=== PATIENT | female | born 1955 | race Caucasian/White ===

== ENCOUNTER 2020-07-22 15:02 | Inpatient (IN) | payer MEDICARE, OTHER ==
[~2020-07-22] VITALS: Ht 157.5 cm; Wt 94.2 kg
[2020-07-22] MEDS ORDERED: SODIUM CHLORIDE 0.9% 1,000 ML IV ONE (15:30)
[2020-07-22] MEDS ORDERED: DexAMETHasone SOD PHOS 10MG/1ML VIAL INJ IV ONE (15:30)
[2020-07-22 16:40] LABS: Albumin 2.8 g/dL (3.4-5.0); Anion Gap 10 (5-15); Blood Urea Nitrogen 49 mg/dL (7-18); Calcium 8.7 mg/dL (8.5-10.1); Carbon Dioxide 17 mmol/L (21-32); Chloride 106 mmol/L (98-107); Glucose 384 mg/dL (74-106); Potassium 3.8 mmol/L (3.5-5.1); Sodium 133 mmol/L (136-145)
[2020-07-22 16:41] LABS: Basophils # (auto) 0 10 ^3/uL (0-0.2); Eosinophils # (auto) 0 10 ^3/uL (0-0.8); Hematocrit 37.5 % (36.0-46.0); Hemoglobin 12.4 g/dL (12.2-16.2); Lymphocytes # (auto) 0.3 10 ^3/uL (0.4-5.4); Lymphocytes % (auto) 4.3 % (10.0-50.0); Mean Corpuscular Hemoglobin 28.1 pg (28.0-32.0); Mean Corpuscular Volume 85.2 fL (80.0-100.0); Monocytes # (auto) 0.3 10 ^3/uL (0-1.3); Monocytes % (auto) 5.3 % (0.0-12.0); Neutrophils # (auto) 5.4 10 ^3/uL (1.6-8.6); Neutrophils % (auto) 90.4 % (37.0-80.0); Nucleated Red Blood Cells % 0.1 %; Platelet Count (auto) 150 10^3/uL (140-450); Red Cell Distribution Width 15.5 % (11.8-14.3)
[2020-07-22 16:48] LABS: INR 0.97 (0.9-1.15); Partial Thromboplastin Time 31.6 sec (23.0-31.2)
[2020-07-22 16:49] LABS: Alanine Aminotransferase 48 U/L (13-56); Alkaline Phosphatase 91 U/L (45-117); Aspartate Aminotransferase 51 U/L (15-37); BUN/Creatinine Ratio 19.8; CRP High Sensitivity 7.39 mg/dL (< 0.3); GFR African American 25 mL/min; GFR Non-African American 21 mL/min; Lactate Dehydrogenase 539 U/L (84-246)
[2020-07-22] MEDS ORDERED: DOXYCYCLINE 100MG/250ML 250 ML IV ONE (18:15)
[2020-07-22] MEDS ORDERED: NITROGLYCERIN 0.4 MG SL TAB SL PRN ×2 (19:00→23:30)
[2020-07-22] MEDS ORDERED: MORPHINE SULF INJ 2 MG/ML SYRINGE 1ML IV PRN ×3 (19:00→23:30)
[2020-07-22] MEDS ORDERED: DEXTROSE (50%) 50ML SYRG IV PRN (23:30)
[2020-07-22] MEDS ORDERED: ENOXAPARIN SOD 100 MG/1 ML SYRINGE SC ONE (23:30)
[2020-07-22] MEDS ORDERED: DOCUSATE SOD 100 MG CAP PO PRN (23:30)
[2020-07-22] MEDS ORDERED: LORazepam 0.5 MG TAB PO PRN (23:30)
[2020-07-22] MEDS ORDERED: ALBUTEROL SULF HFA 90MCG INH 200DOSE IN PRN (23:30)
[2020-07-22] MEDS ORDERED: REMDESIVIR PER PHARMACY 0 ML IV SCH (23:30)
[2020-07-22] MEDS ORDERED: ALUM & MAG HYDROX-SIMETH LIQ(MAALOX) 30 ML PO PRN (23:30)
[2020-07-22] MEDS ORDERED: SODIUM CHLORIDE 0.9% 1,000 ML IV SCH (23:30)
[2020-07-22] MEDS ORDERED: ONDANSETRON HCL 4 MG/2 ML VIAL IV PRN (23:30)
[2020-07-22] MEDS ORDERED: HYDROcodone-ACET 5/325MG TAB PO PRN (23:30)
[2020-07-22] MEDS ORDERED: ACETAMINOPHEN 500 MG TAB PO PRN (23:30)
[2020-07-23] MEDS ORDERED: LOSA25TA38 PO (02:12)
[2020-07-23] MEDS ORDERED: CYAN50008 PO (02:12)
[2020-07-23] MEDS ORDERED: BUDE1AER4 IN (02:12)
[2020-07-23] MEDS ORDERED: METO25TA93 PO (02:12)
[2020-07-23] MEDS ORDERED: GUAI100S6 PO (02:12)
[2020-07-23] MEDS ORDERED: DEXA2TAB PO (02:12)
[2020-07-23] MEDS ORDERED: NIFE90TA49 PO (02:12)
[2020-07-23] MEDS ORDERED: MONT10TA34 PO (02:12)
[2020-07-23] MEDS ORDERED: ATOR-47 PO (02:12)
[2020-07-23] MEDS ORDERED: MELA3TAB27 PO (02:12)
[2020-07-23] MEDS ORDERED: FUROSEMIDE 20 MG/2 ML VIAL IV ONE (02:15)
[2020-07-23] MEDS: guaiFENesin-DM 100/10mg/5ml SYR PO PRN ×2 (02:49→11:02)
[2020-07-23 03:38] LABS: Basophils # (auto) 0 10 ^3/uL (0-0.2); Red Cell Distribution Width 15.8 % (11.8-14.3)
[2020-07-23 03:42] LABS: Basophils % (auto) 0.4 % (0.0-2.0); Eosinophils # (auto) 0 10 ^3/uL (0-0.8); Eosinophils % (auto) 0.2 % (0.0-7.0); Hematocrit 37.1 % (36.0-46.0); Hemoglobin 12.3 g/dL (12.2-16.2); Lymphocytes # (auto) 0.6 10 ^3/uL (0.4-5.4); Lymphocytes % (auto) 5.2 % (10.0-50.0); Mean Corpuscular Hemoglobin 28.5 pg (28.0-32.0); Mean Corpuscular Hgb Conc. 33.2 g/dL (32.0-36.0); Mean Corpuscular Volume 85.8 fL (80.0-100.0); Monocytes # (auto) 1.2 10 ^3/uL (0-1.3); Neutrophils # (auto) 10.3 10 ^3/uL (1.6-8.6); Neutrophils % (auto) 84.2 % (37.0-80.0); Nucleated Red Blood Cells % 0.1 %; Platelet Count (auto) 123 10^3/uL (140-450); Red Blood Cells 4.32 10^6/uL (4.0-5.20); White Blood Cell 12.3 10^3/uL (4.4-10.8)
[2020-07-23 03:59] LABS: Albumin 2.6 g/dL (3.4-5.0); Calcium 8.7 mg/dL (8.5-10.1); Magnesium 2.4 mg/dL (1.6-2.6); Potassium 4.2 mmol/L (3.5-5.1)
[2020-07-23 04:08] LABS: BUN/Creatinine Ratio 21.8; Bilirubin, Total 0.9 mg/dL (0.2-1.0); CRP High Sensitivity 5.11 mg/dL (< 0.3); Total Protein 7.4 g/dL (6.4-8.2)
[2020-07-23 04:20] LABS: Cholesterol 169 mg/dL (< 200); HDL Cholesterol 54 mg/dL (40-59); LDL Cholesterol 88 mg/dL (< 100); Triglycerides 178 mg/dL (< 150)
[2020-07-23] MEDS: InsuLIN REG 1unit/0.01ml Soln (100units/ml) SC SCH ×4 (05:51→23:58)
[2020-07-23] MEDS: ACCU-CHEK COMFORT CURVE STRIP VI SCH ×4 (05:51→22:00)
[2020-07-23] MEDS ORDERED: FUROSEMIDE 20 MG/2 ML VIAL IV SCH (06:00)
[2020-07-23] MEDS ORDERED: REMDESIVIR PER PHARMACY 0 ML IV SCH (07:00)
[2020-07-23 08:00] VITALS: BP 163/90
[2020-07-23 08:27] LABS: Basophils # (auto) 0 10 ^3/uL (0-0.2); Basophils % (auto) 0.2 % (0.0-2.0); Eosinophils # (auto) 0 10 ^3/uL (0-0.8); Hematocrit 38.4 % (36.0-46.0); Hemoglobin 13.2 g/dL (12.2-16.2); Lymphocytes # (auto) 0.4 10 ^3/uL (0.4-5.4); Lymphocytes % (auto) 3.9 % (10.0-50.0); Mean Corpuscular Hemoglobin 28.8 pg (28.0-32.0); Mean Corpuscular Hgb Conc. 34.3 g/dL (32.0-36.0); Mean Corpuscular Volume 84.1 fL (80.0-100.0); Monocytes # (auto) 1.2 10 ^3/uL (0-1.3); Monocytes % (auto) 10.5 % (0.0-12.0); Neutrophils # (auto) 9.7 10 ^3/uL (1.6-8.6); Neutrophils % (auto) 85.4 % (37.0-80.0); Platelet Count (auto) 176 10^3/uL (140-450); Red Blood Cells 4.57 10^6/uL (4.0-5.20); Red Cell Distribution Width 15.4 % (11.8-14.3); White Blood Cell 11.3 10^3/uL (4.4-10.8)
[2020-07-23 08:39] LABS: INR 1.03 (0.9-1.15)
[2020-07-23 08:47] LABS: Albumin 2.7 g/dL (3.4-5.0); Calcium 8.8 mg/dL (8.5-10.1); Magnesium 2.5 mg/dL (1.6-2.6)
[2020-07-23 08:51] LABS: BUN/Creatinine Ratio 21.2; Phosphorus 3.4 mg/dL (2.5-4.90); Total Protein 7.8 g/dL (6.4-8.2)
[2020-07-23] MEDS ORDERED: ASPirin 81 mg TAB PO SCH (10:00)
[2020-07-23] MEDS ORDERED: NIFEdipine ER 30 MG TAB PO SCH (10:00)
[2020-07-23] MEDS ORDERED: BUDESONIDE (INHALATION) 180 MCG IH IN SCH (10:00)
[2020-07-23] MEDS ORDERED: ENOXAPARIN SOD 100 MG/1 ML SYRINGE SC SCH ×2 (10:00)
[2020-07-23] MEDS ORDERED: POTASSIUM CHL 10 Meq TABLET PO SCH (10:00)
[2020-07-23] MEDS ORDERED: LOSARTAN POTASSIUM 25 MG TAB PO SCH (10:00)
[2020-07-23] MEDS ORDERED: METOPROLOL SUCCINATE XL 50 MG TAB PO SCH ×2 (10:00)
[2020-07-23] MEDS: DOXYCYCLINE 100 MG TAB/CAP PO SCH ×2 (10:00→23:49)
[2020-07-23] MEDS: CHOLECALCIFEROL (VITD3) 2,000 UNIT CAP PO SCH (10:42)
[2020-07-23] MEDS: DexAMETHasone SOD PHOS 10MG/1ML VIAL INJ IV SCH (10:42)
[2020-07-23] MEDS: ASPirin 81 mg TAB PO SCH (10:43)
[2020-07-23] MEDS: ASCORBIC ACID 1,000 MG TAB PO SCH (10:44)
[2020-07-23] MEDS: ZINC SULFATE 220mg CAP or TAB PO SCH (10:45)
[2020-07-23] MEDS: HEPARIN SODIUM (PORCINE) 5000 UNITS/ML 1ML VIAL SC SCH ×2 (10:46→23:59)
[2020-07-23] MEDS: SYMBICORT IN SCH ×2 (10:56→23:49)
[2020-07-23 15:06] LABS: Urine Bacteria FEW /hpf (None Seen); Urine Blood 2+ /uL (Negative); Urine Mucus FEW (None Seen); Urine WBC 2 /hpf (0 - 5)
[2020-07-23 15:17] LABS: Amphetamine Screen, Urine NEGATIVE (NEGATIVE); Barbiturate Scree,Urine NEGATIVE (NEGATIVE); Benzodiazephine Screen, Urine NEGATIVE (NEGATIVE); Cannabinoid Screen, Urine NEGATIVE (NEGATIVE); Cocaine Screen, Urine NEGATIVE (NEGATIVE); Opiate Scree,Urine NEGATIVE (NEGATIVE); Phencyclidine Screen, Urine NEGATIVE (NEGATIVE)
[2020-07-23 16:00] VITALS: BP 105/50
[2020-07-23 21:16] VITALS: BP 114/71
[2020-07-23] MEDS ORDERED: ATORVASTATIN 20 MG TAB PO SCH ×2 (22:00)
[2020-07-23] MEDS: ALBUTEROL SULF 2.5 MG/0.5ML(0.5%) NEB SOLN NEB PRN (23:15)
[2020-07-23] MEDS: BUDESONIDE (INHALATION) 0.5 MG/2 ML NEB NEB SCH (23:15)
[2020-07-23 23:44] VITALS: BP 139/74
[2020-07-23] MEDS: INSULIN LANTUS (GLARGINE) 1 /0.01ml (100units/ml) SC SCH (23:53)
[2020-07-24] VITALS (57 sets, daily range): BP systolic 84–195; BP diastolic 43–78
[2020-07-24] MEDS ORDERED: ALBUTEROL SULF 2.5 MG/0.5ML(0.5%) NEB SOLN NEB ONE (02:45)
[2020-07-24] MEDS ORDERED: SODIUM BICARBONATE 8.4 % INJ 50ML VIAL IV ONE ×2 (06:00→21:15)
[2020-07-24] MEDS: InsuLIN REG 1unit/0.01ml Soln (100units/ml) SC SCH ×4 (07:00→22:33)
[2020-07-24] MEDS: ACCU-CHEK COMFORT CURVE STRIP VI SCH ×4 (07:21→22:34)
[2020-07-24] MEDS: INSULIN LANTUS (GLARGINE) 1 /0.01ml (100units/ml) SC SCH ×2 (07:32→22:34)
[2020-07-24] MEDS ORDERED: ETOMIDATE (2MG/ML) 20ML VIAL IV ONE ×2 (09:00→09:44)
[2020-07-24] MEDS ORDERED: ROCURONIUM 10MG/ML 10ML VIAL IV ONE ×2 (09:00→09:44)
[2020-07-24] MEDS ORDERED: SUCCINYLCHOLINE CHLORIDE 20 MG/ML 10ML VIAL IV ONE (09:44)
[2020-07-24] MEDS: MIDAZOLAM DRIP 50 mg/50mL 50 ML IV SCH ×3 (09:45→21:14)
[2020-07-24] MEDS: fentaNYL Drip 2500mCg/250mlNS 250 ML IV SCH (09:45)
[2020-07-24] MEDS: BUDESONIDE (INHALATION) 0.5 MG/2 ML NEB NEB SCH ×2 (10:00→18:33)
[2020-07-24] MEDS: SYMBICORT IN SCH ×2 (10:00→21:34)
[2020-07-24] MEDS: ZINC SULFATE 220mg CAP or TAB PO SCH (12:13)
[2020-07-24] MEDS: ASCORBIC ACID 1,000 MG TAB PO SCH (12:13)
[2020-07-24] MEDS: DexAMETHasone SOD PHOS 10MG/1ML VIAL INJ IV SCH (12:13)
[2020-07-24] MEDS: HEPARIN SODIUM (PORCINE) 5000 UNITS/ML 1ML VIAL SC SCH (12:13)
[2020-07-24] MEDS: CHOLECALCIFEROL (VITD3) 2,000 UNIT CAP PO SCH (12:13)
[2020-07-24] MEDS: ASPirin 81 mg TAB PO SCH (12:13)
[2020-07-24] MEDS ORDERED: BUMETANIDE 2.5mg/10ml (0.25 mg/ml) INJ IV ONE (12:30)
[2020-07-24] MEDS: IVERMECTIN 3 MG TAB PO SCH (16:19)
[2020-07-24 17:10] LABS: Albumin 2.2 g/dL (3.4-5.0); Calcium 8.3 mg/dL (8.5-10.1); Potassium 4.3 mmol/L (3.5-5.1)
[2020-07-24 17:59] LABS: Bilirubin, Total 1.4 mg/dL (0.2-1.0); Total Protein 6.5 g/dL (6.4-8.2)
[2020-07-24] MEDS: NOREPINEPHRINE 8 MG/250ML KIT 250 ML IV SCH (18:20)
[2020-07-24] MEDS: ROCURONIUM 10MG/ML 10ML VIAL IV SCH (18:20)
[2020-07-24] MEDS: ALBUTEROL SULF 2.5 MG/0.5ML(0.5%) NEB SOLN NEB PRN (18:33)
[2020-07-24] MEDS ORDERED: REMDESIVIR PER PHARMACY 0 ML IV SCH (18:45)
[2020-07-24] MEDS ORDERED: REMDESIVIR 200 MG in NS 210ml LOADING DOSE ADULT IV ONE (20:00)
[2020-07-24] MEDS: SODIUM CHLORIDE 0.9% 1,000 ML IV SCH (22:30)
[2020-07-24] MEDS: SODIUM CHLOR 0.9% PF (SALINE LOCK) 10ML VIAL/SYR IV SCH (22:31)
[2020-07-24] MEDS: ENOXAPARIN SOD 40 MG/0.4 ML SYRINGE SC SCH (22:35)
[2020-07-25] VITALS (103 sets, daily range): BP systolic 98–136; BP diastolic 47–59
[2020-07-25] MEDS: ROCURONIUM 10MG/ML 10ML VIAL IV SCH ×6 (00:06→15:42)
[2020-07-25] MEDS: MIDAZOLAM DRIP 50 mg/50mL 50 ML IV SCH ×2 (01:57→05:41)
[2020-07-25] MEDS: fentaNYL Drip 2500mCg/250mlNS 250 ML IV SCH ×2 (01:59→19:48)
[2020-07-25 04:01] LABS: Basophils # (auto) 0 10 ^3/uL (0-0.2); Basophils % (auto) 0.4 % (0.0-2.0); Eosinophils # (auto) 0 10 ^3/uL (0-0.8); Hematocrit 28.9 % (36.0-46.0); Hemoglobin 9.7 g/dL (12.2-16.2); Lymphocytes # (auto) 0.3 10 ^3/uL (0.4-5.4); Lymphocytes % (auto) 2.6 % (10.0-50.0); Mean Corpuscular Hemoglobin 28.3 pg (28.0-32.0); Mean Corpuscular Hgb Conc. 33.7 g/dL (32.0-36.0); Monocytes # (auto) 0.7 10 ^3/uL (0-1.3); Neutrophils # (auto) 9.5 10 ^3/uL (1.6-8.6); Nucleated Red Blood Cells % 0.1 %; Platelet Count (auto) 130 10^3/uL (140-450); Red Blood Cells 3.43 10^6/uL (4.0-5.20); Red Cell Distribution Width 16.2 % (11.8-14.3); White Blood Cell 10.6 10^3/uL (4.4-10.8)
[2020-07-25 04:20] LABS: Potassium 3.9 mmol/L (3.5-5.1)
[2020-07-25 04:26] LABS: Albumin 2.2 g/dL (3.4-5.0); Bilirubin, Total 2.3 mg/dL (0.2-1.0); Total Protein 6.3 g/dL (6.4-8.2)
[2020-07-25] MEDS: SODIUM CHLORIDE 0.9% 1,000 ML IV SCH (04:30)
[2020-07-25] MEDS: ACCU-CHEK COMFORT CURVE STRIP VI SCH ×4 (06:26→21:45)
[2020-07-25] MEDS: INSULIN LANTUS (GLARGINE) 1 /0.01ml (100units/ml) SC SCH ×2 (06:26→22:21)
[2020-07-25] MEDS: InsuLIN REG 1unit/0.01ml Soln (100units/ml) SC SCH ×4 (06:29→22:20)
[2020-07-25] MEDS ORDERED: REMDESIVIR PER PHARMACY 0 ML IV SCH (07:00)
[2020-07-25] MEDS: SYMBICORT IN SCH ×2 (08:56→20:58)
[2020-07-25] MEDS: DexAMETHasone SOD PHOS 10MG/1ML VIAL INJ IV SCH (08:58)
[2020-07-25] MEDS: ZINC SULFATE 220mg CAP or TAB PO SCH (08:59)
[2020-07-25] MEDS: CHOLECALCIFEROL (VITD3) 2,000 UNIT CAP PO SCH (08:59)
[2020-07-25] MEDS: ASCORBIC ACID 1,000 MG TAB PO SCH (08:59)
[2020-07-25] MEDS: SODIUM CHLOR 0.9% PF (SALINE LOCK) 10ML VIAL/SYR IV SCH ×2 (08:59→21:43)
[2020-07-25] MEDS: ENOXAPARIN SOD 40 MG/0.4 ML SYRINGE SC SCH ×2 (09:00→21:44)
[2020-07-25] MEDS ORDERED: SOD CHL 0.45% 1,000 ML IV SCH (10:00)
[2020-07-25] MEDS: IVERMECTIN 3 MG TAB PO SCH (11:20)
[2020-07-25] MEDS: NOREPINEPHRINE 8 MG/250ML KIT 250 ML IV SCH (11:21)
[2020-07-25] MEDS ORDERED: CEFTRIAXONE SODIUM 2 GM in D5W 5% 50 ML IV ONE (12:00)
[2020-07-25] MEDS ORDERED: SODIUM BICARBONATE 50ML VIAL 50 ML in D5W 5% 1,000 ML IV ONE (12:00)
[2020-07-25] MEDS ORDERED: REMDESIVIR 100mg 50 MG in SODIUM CHL 0.9% 240 ML IV ONE (12:30)
[2020-07-25] MEDS: DOXYCYCLINE 100MG/250ML 250 ML IV SCH ×2 (12:40→22:21)
[2020-07-25] MEDS ORDERED: Glucerna 1.2 Cal 1Liter BOTTLE GT SCH (14:30)
[2020-07-25] MEDS ORDERED: REMDESIVIR 100mg 100 MG in SODIUM CHL 0.9% 230 ML IV SCH (15:00)
[2020-07-25] MEDS: ERGOCALCIFEROL 50,000 UNIT(1.25MG) CAP PO SCH (18:52)
[2020-07-25] MEDS: BUDESONIDE (INHALATION) 0.5 MG/2 ML NEB NEB SCH (21:35)
[2020-07-25] MEDS: ALBUTEROL SULF 2.5 MG/0.5ML(0.5%) NEB SOLN NEB PRN (21:36)
[2020-07-26] VITALS (97 sets, daily range): BP systolic 13–176; BP diastolic 1–108
[2020-07-26] MEDS: MIDAZOLAM DRIP 50 mg/50mL 50 ML IV SCH (02:48)
[2020-07-26 05:23] LABS: Basophils # (auto) 0 10 ^3/uL (0-0.2); Basophils % (auto) 0.1 % (0.0-2.0); Eosinophils # (auto) 0 10 ^3/uL (0-0.8); Hemoglobin 9.3 g/dL (12.2-16.2); Lymphocytes # (auto) 0.2 10 ^3/uL (0.4-5.4); Lymphocytes % (auto) 2.3 % (10.0-50.0); Mean Corpuscular Hemoglobin 28.3 pg (28.0-32.0); Mean Corpuscular Hgb Conc. 33.2 g/dL (32.0-36.0); Mean Corpuscular Volume 85.2 fL (80.0-100.0); Monocytes # (auto) 0.7 10 ^3/uL (0-1.3); Monocytes % (auto) 8.6 % (0.0-12.0); Neutrophils # (auto) 6.9 10 ^3/uL (1.6-8.6); Nucleated Red Blood Cells % 0.1 %; Platelet Count (auto) 116 10^3/uL (140-450); Red Blood Cells 3.29 10^6/uL (4.0-5.20); White Blood Cell 7.8 10^3/uL (4.4-10.8)
[2020-07-26] MEDS: ACCU-CHEK COMFORT CURVE STRIP VI SCH ×4 (05:28→22:00)
[2020-07-26] MEDS: InsuLIN REG 1unit/0.01ml Soln (100units/ml) SC SCH ×4 (05:29→22:00)
[2020-07-26] MEDS: INSULIN LANTUS (GLARGINE) 1 /0.01ml (100units/ml) SC SCH ×2 (05:29→22:00)
[2020-07-26 05:43] LABS: Magnesium 2.9 mg/dL (1.6-2.6)
[2020-07-26 05:54] LABS: Albumin 1.8 g/dL (3.4-5.0); BUN/Creatinine Ratio 23.3; Bilirubin, Total 1.8 mg/dL (0.2-1.0); CRP High Sensitivity 12.4 mg/dL (< 0.3); Calcium 7.7 mg/dL (8.5-10.1); Phosphorus 3.3 mg/dL (2.5-4.90); Total Protein 5.8 g/dL (6.4-8.2)
[2020-07-26] MEDS: fentaNYL Drip 2500mCg/250mlNS 250 ML IV SCH ×2 (07:32→19:54)
[2020-07-26] MEDS: cefTRIAXone 1GM/50ML D5W 50 ML IV SCH (09:00)
[2020-07-26] MEDS: ZINC SULFATE 220mg CAP or TAB PO SCH (09:44)
[2020-07-26] MEDS: IVERMECTIN 3 MG TAB PO SCH (09:45)
[2020-07-26] MEDS: ASCORBIC ACID 1,000 MG TAB PO SCH (09:46)
[2020-07-26] MEDS: CHOLECALCIFEROL (VITD3) 2,000 UNIT CAP PO SCH (09:48)
[2020-07-26] MEDS: ENOXAPARIN SOD 40 MG/0.4 ML SYRINGE SC SCH (09:49)
[2020-07-26] MEDS ORDERED: PANTOPRAZOLE 40 MG TAB PO SCH ×2 (10:00)
[2020-07-26] MEDS: BUDESONIDE (INHALATION) 0.5 MG/2 ML NEB NEB SCH ×2 (10:00→22:00)
[2020-07-26] MEDS: SYMBICORT IN SCH ×2 (10:00→22:00)
[2020-07-26] MEDS: diphenhdrAMINE HCL 50 MG/1 ML VL IV SCH ×2 (11:13→22:00)
[2020-07-26] MEDS: methylPREDNISolone SOD SUCC 40 MG/ML VL IV SCH ×2 (11:13→22:00)
[2020-07-26] MEDS: ACETAMINOPHEN 650 mg PER 20.3 mL UD PO SCH ×2 (11:15→22:00)
[2020-07-26] MEDS: SODIUM CHLOR 0.9% PF (SALINE LOCK) 10ML VIAL/SYR IV SCH ×2 (11:40→22:00)
[2020-07-26] MEDS: TOCILIZUMAB 400 MG in SODIUM CHL 0.9% 80 ML IV SCH ×2 (11:45→22:36)
[2020-07-26] MEDS: NOREPINEPHRINE 8 MG/250ML KIT 250 ML IV SCH (12:30)
[2020-07-26] MEDS: DOXYCYCLINE 100MG/250ML 250 ML IV SCH ×2 (12:55→23:36)
[2020-07-26] MEDS: ROCURONIUM 10MG/ML 10ML VIAL IV PRN ×2 (18:50→23:37)
[2020-07-27] VITALS (94 sets, daily range): BP systolic 139–172; BP diastolic 61–76
[2020-07-27 03:32] LABS: Basophils # (auto) 0 10 ^3/uL (0-0.2); Basophils % (auto) 0.2 % (0.0-2.0); Eosinophils # (auto) 0 10 ^3/uL (0-0.8); Hematocrit 30.5 % (36.0-46.0); Hemoglobin 9.8 g/dL (12.2-16.2); Lymphocytes # (auto) 0.2 10 ^3/uL (0.4-5.4); Mean Corpuscular Hemoglobin 27.7 pg (28.0-32.0); Mean Corpuscular Hgb Conc. 32.1 g/dL (32.0-36.0); Mean Corpuscular Volume 86.1 fL (80.0-100.0); Monocytes # (auto) 0.5 10 ^3/uL (0-1.3); Monocytes % (auto) 6.5 % (0.0-12.0); Neutrophils # (auto) 6.6 10 ^3/uL (1.6-8.6); Neutrophils % (auto) 90.3 % (37.0-80.0); Nucleated Red Blood Cells % 0.1 %; Platelet Count (auto) 132 10^3/uL (140-450); Red Blood Cells 3.54 10^6/uL (4.0-5.20); Red Cell Distribution Width 16.3 % (11.8-14.3); White Blood Cell 7.3 10^3/uL (4.4-10.8)
[2020-07-27 03:51] LABS: BUN/Creatinine Ratio 25.8; Calcium 7.6 mg/dL (8.5-10.1); Potassium 4.5 mmol/L (3.5-5.1)
[2020-07-27] MEDS: InsuLIN REG 1unit/0.01ml Soln (100units/ml) SC SCH ×4 (06:22→22:00)
[2020-07-27] MEDS: INSULIN LANTUS (GLARGINE) 1 /0.01ml (100units/ml) SC SCH ×2 (06:23→22:00)
[2020-07-27] MEDS: ACCU-CHEK COMFORT CURVE STRIP VI SCH ×4 (06:24→22:00)
[2020-07-27] MEDS: fentaNYL Drip 2500mCg/250mlNS 250 ML IV SCH ×2 (07:33→18:53)
[2020-07-27] MEDS: cefTRIAXone 1GM/50ML D5W 50 ML IV SCH (08:06)
[2020-07-27] MEDS: ROCURONIUM 10MG/ML 10ML VIAL IV PRN ×2 (09:00→15:10)
[2020-07-27] MEDS: BUDESONIDE (INHALATION) 0.5 MG/2 ML NEB NEB SCH ×2 (10:00→22:00)
[2020-07-27] MEDS: SYMBICORT IN SCH ×2 (10:00→22:00)
[2020-07-27] MEDS: OMEPRAZOLE 20MG/10ML ORAL SUSP GT SCH (10:21)
[2020-07-27] MEDS: SODIUM CHLOR 0.9% PF (SALINE LOCK) 10ML VIAL/SYR IV SCH ×2 (10:23→21:34)
[2020-07-27] MEDS: IVERMECTIN 3 MG TAB PO SCH (10:24)
[2020-07-27] MEDS: ZINC SULFATE 220mg CAP or TAB PO SCH (10:24)
[2020-07-27] MEDS: ASCORBIC ACID 1,000 MG TAB PO SCH (10:24)
[2020-07-27] MEDS: CHOLECALCIFEROL (VITD3) 2,000 UNIT CAP PO SCH (10:25)
[2020-07-27] MEDS: ENOXAPARIN SOD 40 MG/0.4 ML SYRINGE SC SCH (10:25)
[2020-07-27] MEDS: DOXYCYCLINE 100MG/250ML 250 ML IV SCH (11:06)
[2020-07-27] MEDS: MIDAZOLAM DRIP 50 mg/50mL 50 ML IV SCH ×3 (12:07→21:35)
[2020-07-27] MEDS: NOREPINEPHRINE 8 MG/250ML KIT 250 ML IV SCH (12:30)
[2020-07-27] MEDS: REMDESIVIR 100mg 50 MG in SODIUM CHL 0.9% 240 ML IV SCH (15:41)
[2020-07-27] MEDS: PROPOFOL 100 ML IV SCH (21:00)
[2020-07-27] MEDS ORDERED: ROCURONIUM BROMIDE 1,000 MG in D5W 5% 150 ML IV SCH (21:00)
[2020-07-28] VITALS (96 sets, daily range): BP systolic 90–154; BP diastolic 48–70
[2020-07-28] MEDS: DOXYCYCLINE 100MG/250ML 250 ML IV SCH ×3 (00:13→23:08)
[2020-07-28 03:49] LABS: Basophils # (auto) 0 10 ^3/uL (0-0.2); Eosinophils # (auto) 0 10 ^3/uL (0-0.8); Hematocrit 31.8 % (36.0-46.0); Hemoglobin 10.4 g/dL (12.2-16.2); Lymphocytes # (auto) 0.3 10 ^3/uL (0.4-5.4); Lymphocytes % (auto) 3.6 % (10.0-50.0); Mean Corpuscular Hemoglobin 27.9 pg (28.0-32.0); Mean Corpuscular Hgb Conc. 32.6 g/dL (32.0-36.0); Mean Corpuscular Volume 85.6 fL (80.0-100.0); Monocytes # (auto) 1.1 10 ^3/uL (0-1.3); Monocytes % (auto) 12.6 % (0.0-12.0); Neutrophils # (auto) 7.5 10 ^3/uL (1.6-8.6); Neutrophils % (auto) 83.8 % (37.0-80.0); Nucleated Red Blood Cells % 0.1 %; Platelet Count (auto) 145 10^3/uL (140-450); Red Blood Cells 3.72 10^6/uL (4.0-5.20)
[2020-07-28 04:05] LABS: INR 1.12 (0.9-1.15); Partial Thromboplastin Time 31.9 sec (23.0-31.2)
[2020-07-28 04:08] LABS: BUN/Creatinine Ratio 28.9; Calcium 7.9 mg/dL (8.5-10.1); Magnesium 2.7 mg/dL (1.6-2.6); Potassium 4.8 mmol/L (3.5-5.1); Total Protein 5.9 g/dL (6.4-8.2)
[2020-07-28 04:10] LABS: Bilirubin, Total 2.5 mg/dL (0.2-1.0); Phosphorus 4.8 mg/dL (2.5-4.90)
[2020-07-28] MEDS: MIDAZOLAM DRIP 50 mg/50mL 50 ML IV SCH ×2 (05:41→20:00)
[2020-07-28] MEDS: InsuLIN REG 1unit/0.01ml Soln (100units/ml) SC SCH ×4 (05:42→22:18)
[2020-07-28] MEDS: fentaNYL Drip 2500mCg/250mlNS 250 ML IV SCH (05:42)
[2020-07-28] MEDS: INSULIN LANTUS (GLARGINE) 1 /0.01ml (100units/ml) SC SCH ×2 (07:01→22:19)
[2020-07-28] MEDS: ACCU-CHEK COMFORT CURVE STRIP VI SCH ×4 (07:01→22:19)
[2020-07-28] MEDS: cefTRIAXone 1GM/50ML D5W 50 ML IV SCH (09:13)
[2020-07-28] MEDS: SYMBICORT IN SCH ×2 (10:00→22:00)
[2020-07-28] MEDS: IVERMECTIN 3 MG TAB PO SCH (10:27)
[2020-07-28] MEDS: SODIUM CHLOR 0.9% PF (SALINE LOCK) 10ML VIAL/SYR IV SCH ×2 (10:27→22:17)
[2020-07-28] MEDS: ZINC SULFATE 220mg CAP or TAB PO SCH (10:27)
[2020-07-28] MEDS: OMEPRAZOLE 20MG/10ML ORAL SUSP GT SCH (10:27)
[2020-07-28] MEDS: ASCORBIC ACID 1,000 MG TAB PO SCH (10:27)
[2020-07-28] MEDS: CHOLECALCIFEROL (VITD3) 2,000 UNIT CAP PO SCH (10:28)
[2020-07-28] MEDS: ENOXAPARIN SOD 40 MG/0.4 ML SYRINGE SC SCH (10:28)
[2020-07-28] MEDS: NOREPINEPHRINE 8 MG/250ML KIT 250 ML IV SCH (11:54)
[2020-07-28] MEDS: REMDESIVIR 100mg 50 MG in SODIUM CHL 0.9% 240 ML IV SCH (15:00)
[2020-07-28] MEDS: BUDESONIDE (INHALATION) 0.5 MG/2 ML NEB NEB SCH ×2 (16:50→19:59)
[2020-07-28] MEDS: ALBUTEROL SULF 2.5 MG/0.5ML(0.5%) NEB SOLN NEB PRN (19:59)
[2020-07-28] MEDS: PROPOFOL 100 ML IV SCH (20:01)
[2020-07-29] VITALS (92 sets, daily range): BP systolic 77–234; BP diastolic 32–300
[2020-07-29] MEDS: MIDAZOLAM DRIP 50 mg/50mL 50 ML IV SCH ×2 (00:26→04:18)
[2020-07-29] MEDS: fentaNYL Drip 2500mCg/250mlNS 250 ML IV SCH (04:17)
[2020-07-29] MEDS: NOREPINEPHRINE 8 MG/250ML KIT 250 ML IV SCH (04:22)
[2020-07-29] MEDS: ACCU-CHEK COMFORT CURVE STRIP VI SCH ×4 (06:45→22:18)
[2020-07-29] MEDS: INSULIN LANTUS (GLARGINE) 1 /0.01ml (100units/ml) SC SCH ×2 (06:45→22:47)
[2020-07-29] MEDS: InsuLIN REG 1unit/0.01ml Soln (100units/ml) SC SCH ×4 (06:46→22:44)
[2020-07-29] MEDS: cefTRIAXone 1GM/50ML D5W 50 ML IV SCH (09:00)
[2020-07-29] MEDS: ZINC SULFATE 220mg CAP or TAB PO SCH (10:00)
[2020-07-29] MEDS: ENOXAPARIN SOD 40 MG/0.4 ML SYRINGE SC SCH (10:00)
[2020-07-29] MEDS: BUDESONIDE (INHALATION) 0.5 MG/2 ML NEB NEB SCH ×2 (10:00→18:20)
[2020-07-29] MEDS: OMEPRAZOLE 20MG/10ML ORAL SUSP GT SCH (10:00)
[2020-07-29] MEDS: ASCORBIC ACID 1,000 MG TAB PO SCH (10:00)
[2020-07-29] MEDS: SODIUM CHLOR 0.9% PF (SALINE LOCK) 10ML VIAL/SYR IV SCH ×2 (10:00→22:19)
[2020-07-29] MEDS: CHOLECALCIFEROL (VITD3) 2,000 UNIT CAP PO SCH (10:00)
[2020-07-29] MEDS: IVERMECTIN 3 MG TAB PO SCH (10:00)
[2020-07-29] MEDS: SYMBICORT IN SCH ×2 (10:00→19:43)
[2020-07-29 10:19] LABS: Hematocrit 33.4 % (36.0-46.0); Hemoglobin 10.8 g/dL (12.2-16.2); Mean Corpuscular Hemoglobin 28.1 pg (28.0-32.0); Mean Corpuscular Hgb Conc. 32.3 g/dL (32.0-36.0); Platelet Count (auto) 170 10^3/uL (140-450); Red Blood Cells 3.84 10^6/uL (4.0-5.20); Red Cell Distribution Width 16.6 % (11.8-14.3); White Blood Cell 9.6 10^3/uL (4.4-10.8)
[2020-07-29 10:28] LABS: Basophils % (manual) 0 (0.0-2.0); Metamyelocytes % 0; Promyelocytes % 0; Reactive Lymphocytes 0
[2020-07-29 10:43] LABS: Calcium 7.8 mg/dL (8.5-10.1)
[2020-07-29 10:46] LABS: Band Neutrophils % (manual) 8; Blast Cells 1; Eosinophils % (manual) 3 (0-7); Lymphocytes % (manual) 22 (10.0-50.0); Monocytes % (manual) 9 (0-12); Myelocytes % 7
[2020-07-29 10:47] LABS: BUN/Creatinine Ratio 27.1; Bilirubin, Total 2.6 mg/dL (0.2-1.0); Total Protein 5.8 g/dL (6.4-8.2)
[2020-07-29] MEDS ORDERED: BUMETANIDE 2.5mg/10ml (0.25 mg/ml) INJ IV ONE (12:00)
[2020-07-29] MEDS: DOXYCYCLINE 100MG/250ML 250 ML IV SCH (12:00)
[2020-07-29] MEDS: ALBUMIN 25% 100 ML IV SCH ×2 (12:00→19:42)
[2020-07-29] MEDS ORDERED: SODIUM BICARBONATE 8.4 % INJ 50ML VIAL IV ONE (13:30)
[2020-07-29] MEDS: REMDESIVIR 100mg 50 MG in SODIUM CHL 0.9% 240 ML IV SCH (15:36)
[2020-07-29] MEDS ORDERED: HEPARIN SODIUM (PORCINE) 5000 UNITS/ML 1ML VIAL IV ONE (15:45)
[2020-07-29] MEDS: PROPOFOL 100 ML IV SCH (19:42)
[2020-07-29] MEDS: ALBUTEROL SULF 2.5 MG/0.5ML(0.5%) NEB SOLN NEB PRN (20:34)
[2020-07-29] MEDS: LINEZOLID 600MG/300ML 300 ML IV SCH (22:18)
[2020-07-29 22:29] LABS: Hepatitis B Surface Antigen Negative (Negative); Hepatitis C Antibody Negative (Negative)
[2020-07-29] MEDS: MEROPENEM 500MG IVPB 50 ML IV SCH (23:04)
[2020-07-30] VITALS (98 sets, daily range): BP systolic 82–184; BP diastolic 33–72
[2020-07-30] MEDS: DOXYCYCLINE 100MG/250ML 250 ML IV SCH ×3 (00:01→23:56)
[2020-07-30] MEDS: fentaNYL Drip 2500mCg/250mlNS 250 ML IV SCH ×3 (02:16→22:05)
[2020-07-30] MEDS: MIDAZOLAM DRIP 50 mg/50mL 50 ML IV SCH ×5 (02:17→23:01)
[2020-07-30] MEDS: ALBUMIN 25% 100 ML IV SCH ×3 (04:10→18:18)
[2020-07-30] MEDS: ACCU-CHEK COMFORT CURVE STRIP VI SCH ×4 (06:18→22:05)
[2020-07-30] MEDS: INSULIN LANTUS (GLARGINE) 1 /0.01ml (100units/ml) SC SCH ×2 (06:19→22:04)
[2020-07-30] MEDS: InsuLIN REG 1unit/0.01ml Soln (100units/ml) SC SCH ×3 (06:20→23:57)
[2020-07-30] MEDS: BUDESONIDE (INHALATION) 0.5 MG/2 ML NEB NEB SCH ×2 (06:45→21:44)
[2020-07-30] MEDS ORDERED: SODIUM CHL 0.9% 1000 ML BAG XX ONE (07:00)
[2020-07-30 07:25] LABS: Calcium 6.4 mg/dL (8.5-10.1)
[2020-07-30 07:29] LABS: BUN/Creatinine Ratio 30.4
[2020-07-30] MEDS: ALBUTEROL SULF 2.5 MG/0.5ML(0.5%) NEB SOLN NEB PRN ×2 (08:13→21:44)
[2020-07-30] MEDS ORDERED: SODIUM BICARBONATE 8.4 % INJ 50ML VIAL IV ONE (09:00)
[2020-07-30] MEDS: SODIUM CHLOR 0.9% PF (SALINE LOCK) 10ML VIAL/SYR IV SCH ×2 (09:19→21:46)
[2020-07-30] MEDS: OMEPRAZOLE 20MG/10ML ORAL SUSP GT SCH (09:19)
[2020-07-30] MEDS: ZINC SULFATE 220mg CAP or TAB PO SCH (09:20)
[2020-07-30] MEDS: ASCORBIC ACID 1,000 MG TAB PO SCH (09:20)
[2020-07-30] MEDS: ENOXAPARIN SOD 40 MG/0.4 ML SYRINGE SC SCH (09:20)
[2020-07-30] MEDS: CHOLECALCIFEROL (VITD3) 2,000 UNIT CAP PO SCH (09:20)
[2020-07-30] MEDS: SYMBICORT IN SCH (09:20)
[2020-07-30] MEDS: LINEZOLID 600MG/300ML 300 ML IV SCH ×2 (09:36→21:46)
[2020-07-30] MEDS ORDERED: BUMETANIDE 2.5mg/10ml (0.25 mg/ml) INJ IV SCH (10:00)
[2020-07-30] MEDS: MEROPENEM 500MG IVPB 50 ML IV SCH ×2 (12:20→21:46)
[2020-07-30] MEDS: NOREPINEPHRINE 8 MG/250ML KIT 250 ML IV SCH (12:30)
[2020-07-30] MEDS ORDERED: TPN PER PHARMACY 0 ML IV SCH (12:30)
[2020-07-30] MEDS ORDERED: hydrALAZINE HCL 20 MG/ML VL IV PRN (14:15)
[2020-07-30 15:14] LABS: Albumin 2.8 g/dL (3.4-5.0); Bilirubin, Direct 1.8 mg/dL (0-0.2); Magnesium 2.6 mg/dL (1.6-2.6)
[2020-07-30 15:20] LABS: Bilirubin, Total 2.4 mg/dL (0.2-1.0); Phosphorus 4.6 mg/dL (2.5-4.90); Pre Albumin 20.1 mg/dL (20.0-40.0)
[2020-07-30] MEDS ORDERED: DEXTROSE (50%) 50ML SYRG IV PRN (16:15)
[2020-07-30] MEDS ORDERED: InsuLIN REG 1unit/0.01ml Soln (100units/ml) SC SCH ×2 (17:00→22:00)
[2020-07-30] MEDS: AMINO ACID INFUSION IN D10W 1,000 ML IV NR (20:09)
[2020-07-30] MEDS: PROPOFOL 100 ML IV SCH (21:00)
[2020-07-31] VITALS (99 sets, daily range): BP systolic 29–173; BP diastolic 13–85
[2020-07-31] MEDS ORDERED: DEXTROSE (50%) 50ML SYRG IV SCH
[2020-07-31] MEDS: ACCU-CHEK COMFORT CURVE STRIP VI SCH ×4 (00:11→17:27)
[2020-07-31] MEDS: PROPOFOL 100 ML IV SCH ×3 (01:00→21:36)
[2020-07-31] MEDS: ALBUMIN 25% 100 ML IV SCH (03:00)
[2020-07-31] MEDS: MIDAZOLAM DRIP 50 mg/50mL 50 ML IV SCH ×2 (03:44→14:18)
[2020-07-31] MEDS: InsuLIN REG 1unit/0.01ml Soln (100units/ml) SC SCH ×3 (06:00→17:27)
[2020-07-31 06:06] LABS: Potassium 4.3 mmol/L (3.5-5.1)
[2020-07-31 06:14] LABS: Albumin 3.4 g/dL (3.4-5.0); BUN/Creatinine Ratio 27.8; Bilirubin, Total 3.2 mg/dL (0.2-1.0); Calcium 7.7 mg/dL (8.5-10.1); Magnesium 2.8 mg/dL (1.6-2.6); Phosphorus 4.6 mg/dL (2.5-4.90); Total Protein 5.8 g/dL (6.4-8.2)
[2020-07-31] MEDS: INSULIN LANTUS (GLARGINE) 1 /0.01ml (100units/ml) SC SCH ×2 (06:46→21:42)
[2020-07-31] MEDS: LINEZOLID 600MG/300ML 300 ML IV SCH ×2 (08:05→21:41)
[2020-07-31] MEDS: NOREPINEPHRINE 8 MG/250ML KIT 250 ML IV SCH ×2 (08:06→15:02)
[2020-07-31] MEDS ORDERED: CALCIUM GLUC 4.65meq/50ml D5AE 50 ML IV ONE (09:30)
[2020-07-31] MEDS: OMEPRAZOLE 20MG/10ML ORAL SUSP GT SCH (09:56)
[2020-07-31] MEDS: ASCORBIC ACID 1,000 MG TAB PO SCH (09:57)
[2020-07-31] MEDS: SODIUM CHLOR 0.9% PF (SALINE LOCK) 10ML VIAL/SYR IV SCH ×2 (09:57→21:41)
[2020-07-31] MEDS: ZINC SULFATE 220mg CAP or TAB PO SCH (09:57)
[2020-07-31] MEDS: CHOLECALCIFEROL (VITD3) 2,000 UNIT CAP PO SCH (09:57)
[2020-07-31] MEDS: MEROPENEM 500MG IVPB 50 ML IV SCH ×2 (09:57→21:41)
[2020-07-31] MEDS: SYMBICORT IN SCH ×2 (10:00→22:00)
[2020-07-31] MEDS: ENOXAPARIN SOD 40 MG/0.4 ML SYRINGE SC SCH (10:00)
[2020-07-31] MEDS: BUDESONIDE (INHALATION) 0.5 MG/2 ML NEB NEB SCH ×2 (10:00→20:55)
[2020-07-31 10:23] LABS: Hematocrit 22.4 % (36.0-46.0); Hemoglobin 7.5 g/dL (12.2-16.2); Mean Corpuscular Hemoglobin 28.4 pg (28.0-32.0); Mean Corpuscular Volume 84.8 fL (80.0-100.0); Red Blood Cells 2.64 10^6/uL (4.0-5.20); White Blood Cell 5.2 10^3/uL (4.4-10.8)
[2020-07-31 10:27] LABS: Mean Corpuscular Hgb Conc. 33.5 g/dL (32.0-36.0); Platelet Count (auto) 89 10^3/uL (140-450); Red Cell Distribution Width 15.8 % (11.8-14.3)
[2020-07-31 10:32] LABS: Basophils % (manual) 0 (0.0-2.0); Blast Cells 0; Promyelocytes % 0; Reactive Lymphocytes 0
[2020-07-31] MEDS ORDERED: ROCURONIUM 10MG/ML 10ML VIAL IV PRN (11:00)
[2020-07-31] MEDS ORDERED: ROCURONIUM 10MG/ML 10ML VIAL IV ONE (11:09)
[2020-07-31] MEDS ORDERED: EPINEPHrine HCL 250 ML IV ONE (12:18)
[2020-07-31] MEDS: EPINEPHrine HCL 250 ML IV SCH (13:00)
[2020-07-31] MEDS: VASOPRESSIN 50 UNITS in D5W 5% 247.5 ML IV SCH (13:00)
[2020-07-31] MEDS: PHENYLEPHRINE IV 250 ML IV SCH ×2 (13:00→20:09)
[2020-07-31] MEDS: DOXYCYCLINE 100MG/250ML 250 ML IV SCH (13:36)
[2020-07-31 13:56] LABS: Band Neutrophils % (manual) 8; Eosinophils % (manual) 1 (0-7); Lymphocytes % (manual) 6 (10.0-50.0); Metamyelocytes % 2; Monocytes % (manual) 4 (0-12)
[2020-07-31 13:57] LABS: Myelocytes % 3
[2020-07-31] MEDS: fentaNYL Drip 2500mCg/250mlNS 250 ML IV SCH (17:05)
[2020-07-31] MEDS: AMINO ACID INFUSION IN D10W 1,000 ML IV NR (19:49)
[2020-07-31] MEDS ORDERED: TPN PER PHARMACY IV NR ×5 (20:00)
[2020-07-31] MEDS: ALBUTEROL SULF 2.5 MG/0.5ML(0.5%) NEB SOLN NEB PRN (20:56)
[2020-07-31] MEDS ORDERED: FAMOTIDINE (10MG/ML) 2ML VL IV ONE (22:00)
[2020-07-31] MEDS ORDERED: FAMOTIDINE INJECTION 40 MG in SODIUM CHL 0.9% 100 ML IV ONE (22:00)
[2020-08-01] VITALS (80 sets, daily range): BP systolic 22–244; BP diastolic 15–91
[2020-08-01] MEDS: DOXYCYCLINE 100MG/250ML 250 ML IV SCH ×2 (00:29→12:00)
[2020-08-01] MEDS: MIDAZOLAM DRIP 50 mg/50mL 50 ML IV SCH ×3 (00:30→04:55)
[2020-08-01] MEDS: NOREPINEPHRINE 8 MG/250ML KIT 250 ML IV SCH (00:30)
[2020-08-01] MEDS: PROPOFOL 100 ML IV SCH (01:51)
[2020-08-01 03:30] LABS: Albumin 3.6 g/dL (3.4-5.0); Calcium 7.9 mg/dL (8.5-10.1); Magnesium 2.4 mg/dL (1.6-2.6); Potassium 4.6 mmol/L (3.5-5.1)
[2020-08-01 03:33] LABS: Bilirubin, Total 5.6 mg/dL (0.2-1.0); Phosphorus 4.8 mg/dL (2.5-4.90); Total Protein 6.2 g/dL (6.4-8.2)
[2020-08-01 03:41] LABS: Hematocrit 33.8 % (36.0-46.0); Hemoglobin 10.7 g/dL (12.2-16.2); Mean Corpuscular Hemoglobin 27.9 pg (28.0-32.0); Mean Corpuscular Hgb Conc. 31.6 g/dL (32.0-36.0); Mean Corpuscular Volume 88.2 fL (80.0-100.0); Platelet Count (auto) 137 10^3/uL (140-450); Red Blood Cells 3.83 10^6/uL (4.0-5.20); White Blood Cell 13.4 10^3/uL (4.4-10.8)
[2020-08-01 03:46] LABS: BUN/Creatinine Ratio 25.1
[2020-08-01 03:55] LABS: Basophils % (manual) 0 (0.0-2.0); Blast Cells 0; Eosinophils % (manual) 0 (0-7); Promyelocytes % 0; Reactive Lymphocytes 0
[2020-08-01] MEDS: fentaNYL Drip 2500mCg/250mlNS 250 ML IV SCH (04:55)
[2020-08-01] MEDS: PHENYLEPHRINE IV 250 ML IV SCH ×2 (04:56→13:00)
[2020-08-01 05:22] LABS: Band Neutrophils % (manual) 4; Lymphocytes % (manual) 9 (10.0-50.0); Monocytes % (manual) 7 (0-12)
[2020-08-01 05:23] LABS: Metamyelocytes % 2; Myelocytes % 3
[2020-08-01] MEDS: InsuLIN REG 1unit/0.01ml Soln (100units/ml) SC SCH ×2 (06:00)
[2020-08-01] MEDS: INSULIN LANTUS (GLARGINE) 1 /0.01ml (100units/ml) SC SCH (06:42)
[2020-08-01] MEDS ORDERED: DEXTROSE (50%) 50ML SYRG IV PRN ×2 (06:45→10:45)
[2020-08-01] MEDS ORDERED: InsuLIN REG 1unit/0.01ml Soln (100units/ml) SC SCH (08:00)
[2020-08-01] MEDS ORDERED: ACCU-CHEK COMFORT CURVE STRIP VI SCH (08:00)
[2020-08-01] MEDS: MEROPENEM 500MG IVPB 50 ML IV SCH (09:35)
[2020-08-01] MEDS: SYMBICORT IN SCH (09:45)
[2020-08-01] MEDS: ENOXAPARIN SOD 40 MG/0.4 ML SYRINGE SC SCH (09:45)
[2020-08-01] MEDS: CHOLECALCIFEROL (VITD3) 2,000 UNIT CAP PO SCH (09:45)
[2020-08-01] MEDS: ASCORBIC ACID 1,000 MG TAB PO SCH (09:45)
[2020-08-01] MEDS: ZINC SULFATE 220mg CAP or TAB PO SCH (09:45)
[2020-08-01] MEDS: SODIUM CHLOR 0.9% PF (SALINE LOCK) 10ML VIAL/SYR IV SCH (09:45)
[2020-08-01] MEDS: BUDESONIDE (INHALATION) 0.5 MG/2 ML NEB NEB SCH (09:55)
[2020-08-01] MEDS: LINEZOLID 600MG/300ML 300 ML IV SCH (10:00)
[2020-08-01] MEDS ORDERED: FAMOTIDINE INJECTION 40 MG in SODIUM CHL 0.9% 100 ML IV SCH (10:00)
[2020-08-01] MEDS ORDERED: FAMOTIDINE (10MG/ML) 2ML VL IV SCH (10:00)
[2020-08-01] MEDS ORDERED: InsuLIN R (HUMAN) 100 UNITS in SODIUM CHL 0.9% 99 ML IV SCH ×5 (10:45→18:30)
[2020-08-01] MEDS: ERGOCALCIFEROL 50,000 UNIT(1.25MG) CAP PO SCH (12:00)
[2020-08-01] MEDS: ACCU-CHEK COMFORT CURVE STRIP VI SCH ×6 (12:00→18:00)
[2020-08-01] MEDS: EPINEPHrine HCL 250 ML IV SCH (12:59)
[2020-08-01] MEDS: VASOPRESSIN 50 UNITS in D5W 5% 247.5 ML IV SCH (13:00)
[2020-08-01] MEDS ORDERED: TPN PER PHARMACY IV NR ×9 (20:00)
[2020-08-01] MEDS ORDERED: INSULIN LANTUS (GLARGINE) 1 /0.01ml (100units/ml) SC SCH (22:00)
== END 2020-08-01 20:00 | DRG 870 ==
LOC: ER 15:02 → EDBD 15:02 → OVERFLOW 19:00 → TELE-WESTW 23:20 → DOU IN ICU 07-24 10:10
PROVIDERS: ADMIT Hospitalist; ATTEND Internal Medicine
PROC: XW13325 Transfusion of Convalescent Plasma (Nonautologous) into Peripheral Vein, Percutaneous Approach, New Technology Group 5 (ICD-10-PCS; 2020-07-23)
PROC: 5A09457 Assistance with Respiratory Ventilation, 24-96 Consecutive Hours, Continuous Positive Airway Pressure (ICD-10-PCS; 2020-07-23)
PROC: 5A1955Z Respiratory Ventilation, Greater than 96 Consecutive Hours (ICD-10-PCS; 2020-07-24)
PROC: 0BH17EZ Insertion of Endotracheal Airway into Trachea, Via Natural or Artificial Opening (ICD-10-PCS; 2020-07-24)
PROC: XW033E5 Introduction of Remdesivir Anti-infective into Peripheral Vein, Percutaneous Approach, New Technology Group 5 (ICD-10-PCS; 2020-07-24)
PROC: 02H633Z Insertion of Infusion Device into Right Atrium, Percutaneous Approach (ICD-10-PCS; 2020-07-24)
PROC: B548ZZA Ultrasonography of Superior Vena Cava, Guidance (ICD-10-PCS; 2020-07-24)
PROC: XW033H5 Introduction of Tocilizumab into Peripheral Vein, Percutaneous Approach, New Technology Group 5 (ICD-10-PCS; 2020-07-26)
PROC: 06HM33Z Insertion of Infusion Device into Right Femoral Vein, Percutaneous Approach (ICD-10-PCS; principal; 2020-07-29)
PROC: 30233N1 Transfusion of Nonautologous Red Blood Cells into Peripheral Vein, Percutaneous Approach (ICD-10-PCS; 2020-07-31)
DX: A41.89 Other specified sepsis (principal); U07.1 COVID-19; J12.82 Pneumonia due to coronavirus disease 2019; J96.01 Acute respiratory failure with hypoxia; N17.0 Acute kidney failure with tubular necrosis; R65.21 Severe sepsis with septic shock; E87.1 Hypo-osmolality and hyponatremia; E44.0 Moderate protein-calorie malnutrition; J98.11 Atelectasis; Z99.11 Dependence on respirator [ventilator] status; D68.59 Other primary thrombophilia; D89.834 Cytokine release syndrome, grade 4; G40.909 Epilepsy, unspecified, not intractable, without status epilepticus; N18.32 Chronic kidney disease, stage 3b; E66.9 Obesity, unspecified; F39 Unspecified mood [affective] disorder; E78.5 Hyperlipidemia, unspecified; D64.9 Anemia, unspecified; Z68.38 Body mass index [BMI] 38.0-38.9, adult; Z66 Do not resuscitate; E11.22 Type 2 diabetes mellitus with diabetic chronic kidney disease; I12.9 Hypertensive chronic kidney disease with stage 1 through stage 4 chronic kidney disease, or unspecified chronic kidney disease; Z79.4 Long term (current) use of insulin; Z82.49 Family history of ischemic heart disease and other diseases of the circulatory system
CPT/HCPCS: 36415; 36569; 36600; 71045; 80048; 80053; 80061; 80076; 80307; 81001; 82040; 82306; 82728; 82805; 82962; 83036; 83540; 83550; 83605; 83615; 83735; 83880; 84100; 84443; 84478; 84484; 85007; 85025; 85027; 85045; 85379; 85610; 85730; 86141; 86803; 86850; 86900; 86901; 86920; 87070; 87086; 87205; 87340; 87426; 87804; 93970; 94002; 94003; 94640; 94660; 96365; 96366; 96372; 96375; 99291; G0378; J0171; J0330; J0610; J0696; J1100; J1815; J2185; J2250; J2704; J3490; J7060; J7131; P9047